=== PATIENT | male | born 1945 | race Caucasian/White ===

== ENCOUNTER → 2024-04-06 08:27 | Outpatient (REF) | payer MEDICARE, OTHER, SELFPAY ==
[2024-04-06 08:46] VITALS: BMI 28.3
[2024-04-06 10:41] LABS: Hematocrit 37.9 % (39.0-52.0); Mean Corp Hgb Conc. 34.3 g/dL (33.0-37.0); Mean Corpuscular Hgb 31.8 pg (27.0-31.0); Mean Corpuscular Volume 92.7 fL (80.0-94.0); Mean Platelet Volume 10.8 fL (7.4-10.4); Platelet Count 228 10^3/uL (130-400); Red Blood Cell Count 4.09 10^6/uL (4.70-6.10); Red Cell Dist. Width 12.7 % (11.5-14.5); White Blood Cell Count 3.9 10^3/uL (4.8-10.8)
[2024-04-06 14:20] LABS: Blood Urea Nitrogen 20 mg/dl (9-20); Calcium 9.3 mg/dl (8.4-10.2); Carbon Dioxide 26 mmol/L (22-30); Chloride 104 mmol/L (98-107); Estimated Creatinine Clearance 76 ml/min; Glucose 86 mg/dl (70-99); Potassium 4.9 mmol/L (3.5-5.1); Sodium 143 mmol/L (135-145); eGFR > 60.00
== END ==
LOC: SDSPAT 08:27
PROVIDERS: ATTENDING PHYSICIAN Surgery; FAMILY PHYSICIAN Family Medicine
DX: Z01.818 Encounter for other preprocedural examination (principal)
CPT/HCPCS: 36415; 80048; 85027

== ENCOUNTER 2024-05-04 06:36 | Day surgery (SDC) | payer MEDICARE, OTHER, SELFPAY ==
[2024-05-04] VITALS (11 sets, daily range): BP systolic 102–140; BP diastolic 56–79; BMI 27.7
[2024-05-04] MEDS: NORMOSOL-R/PLASMALYTE-A 1000 IV (08:41)
[2024-05-04] MEDS: TYLENOL 1000 MG PO (08:41)
[2024-05-04] MEDS: VANCOCIN 300 MG IV (08:48)
[2024-05-04] MEDS: VANCOCIN 300 ML IV (08:48)
--- NOTE | 2024-05-04 08:48 | HP.FOC2 ---
Focused History & Physical
Chief Complaint
HPI:
Chief Complaint: Right inguinal hernia
HPI / Indication for Planned Procedure: Patient is an 78-year-old male presenting for scheduled operative correction right inguinal hernia. He has been following his hernia expectantly for probably a couple years now. It has slightly increased in
size and now is more prominent. He has discomfort in the area particularly with more vigorous activities but the hernia remains reducible.
Medical history notable for LAN/CPAP, asthma, P A-fib on Tikosyn and anticoagulation with Eliquis, previous cardiac ablation and cardioversion, hypertension and BPH on both finasteride and tamsulosin.
Relevant Past Medical History: Other (A-fib, BPH, asthma, history of Elias's palsy, history of Lyme's, right inguinal hernia, LAN with CPAP)
Relevant Social History: Negative
Relevant Family History: Negative
Relevant Past Surgical History: Positive for (Arthroscopy knee, bilateral knee replacements, tonsils, cardiac ablation/cardioversion)
Review of Systems
Review of Pertinent Systems: All Systems Negative
Medication
See Medication form for detailed medications: Yes
Medication List (including Herbals & OTC):
calcium carbonate 500 mg-vitamin D3 10 mcg (400 unit) tablet (Calcium 500 + D) 1 tab PO QPM Supplement 12/12/11
fluticasone propionate 50 mcg/actuation nasal spray,suspension 2 spray intranasal DAILYPRN PRN allergies 12/12/11
tamsulosin 0.4 mg capsule 0.4 mg PO QPM Urinary issue 12/12/11
magnesium oxide 400 mg (241.3 mg magnesium) tablet (MagOx) 400 mg PO QPM Supplement 06/09/14
apixaban 5 mg tablet (Eliquis) 5 mg PO BID #60 tabs 04/13/21
finasteride 5 mg tablet 5 mg PO QPM Urinary issue 04/13/21
multivitamin with folic acid 400 mcg tablet (Tab-A-Antwan) 1 tab PO QPM Supplement 07/22/21
dofetilide 500 mcg capsule 500 mcg PO Q12 #60 caps 07/25/21
polyethylene glycol 3350 17 gram oral powder packet (Miralax) 17 g PO PRN PRN constipation 04/23/24
psyllium husk 0.52 gram capsule 1.04 g PO BID 04/23/24
Medications Reviewed: Yes
Allergies and Reactions
Patient has Allergies: Yes
Noted Allergies and Reactions:
Allergy/AdvReac Type Severity Reaction Status Date / Time
Cephalosporins Allergy Unknown Verified 05/04/24 08:33
grass pollen Allergy Sinus Verified 05/04/24 08:33
congestion
penicillin G Allergy Shortness Verified 05/04/24 08:33
of Breath
Penicillins Allergy Shortness Verified 05/04/24 08:33
of Breath
Pertinent Physical Exam
All Other Systems: Negative
Head/Neck: Normal
Lungs: Normal
Heart: Normal
Abdomen: Other (Right inguinal hernia)
Extremities: Normal
Neurological: Normal
Diagnosis / Assessment
Patient is an 78-year-old male presenting for scheduled operative correction symptomatic right inguinal hernia
Plan / Procedure
Robotic assisted laparoscopic repair right inguinal hernia with mesh
Anesthesia/Sedation to be done by Anesthesia Provider: Yes
--- NOTE | 2024-05-04 08:50 | W.SUR.PREOP ---
Pre-Operative Surgical Note
-
I have examined this patient prior to the performance of the scheduled procedure.
The patient's condition is unchanged from the time of the current History and
Physical and the patient is able to undergo the scheduled procedure.
--- NOTE | 2024-05-04 10:47 | W.IMMPOSTOP ---
Addendum entered and electronically signed by Дмитрий Steen MD 05/04/24 11:07:
#[id number]
Original Note:
Surgical Immed Post Op Note
-
Primary Surgeon: Enio
Assisting Surgeon: Azalea Bailey PA-c
Pre-op Diagnosis: Right inguinal hernia
Post-op Diagnosis: Right inguinal hernia�direct
Procedure Performed: RAL NELLIE repair RIH with mesh; 3D max large mid weight
Anesthesia Type: GETA +0.25% Marcaine
Specimen / Cultures: None
Estimated Blood Loss: 4 mL
Complications: None immediate
Operative Findings: Right direct inguinal hernia. Indirect location normal. Small lipoma of cord structures reduced and excised to facilitate mesh placement. 3D max large mid weight mesh repair. Plication of pseudosac with 2-0 Vicryl. Mesh
secured with 2-0 Vicryl to Earnest's.
The assistance of Azalea Bailey PA-C was required due to the complexity of the procedure. During the procedure Azalea Bailey PA-C assisted with port placement, robotic instrumentation and suture material exchanges, and closure of the surgical incision
sites. I was present for the entirety of the operative procedure.
--- NOTE | 2024-05-04 12:36 | SUR.PHASEI ---
comfortable in pacu - sleeps unless disturbed, patient with history of LAN, uses CPAP - encouraged to use CPAP with any rest periods today. Patient understands and agrees to same.
== END 2024-05-04 14:00 | disposition home or self-care (01) ==
LOC: SDS 06:36
PROVIDERS: ATTENDING PHYSICIAN Surgery; FAMILY PHYSICIAN Family Medicine
PROC: 0YU54JZ Supplement Right Inguinal Region with Synthetic Substitute, Percutaneous Endoscopic Approach (ICD-10-PCS; 2024-05-04)
PROC: 8E0W4CZ Robotic Assisted Procedure of Trunk Region, Percutaneous Endoscopic Approach (ICD-10-PCS; 2024-05-04)
DX: K40.90 Unilateral inguinal hernia, without obstruction or gangrene, not specified as recurrent (principal); I48.0 Paroxysmal atrial fibrillation; G47.33 Obstructive sleep apnea (adult) (pediatric); I10 Essential (primary) hypertension; J45.909 Unspecified asthma, uncomplicated; N40.0 Benign prostatic hyperplasia without lower urinary tract symptoms; Z79.01 Long term (current) use of anticoagulants
CPT/HCPCS: 49650; C1781

== ENCOUNTER → 2024-11-20 09:23 | Outpatient (REF) | payer MEDICARE, OTHER, SELFPAY | LOC: EMG 09:23 | PROVIDERS: ATTENDING PHYSICIAN Specialist; FAMILY PHYSICIAN Family Medicine | DX: G56.03 Carpal tunnel syndrome, bilateral upper limbs (principal); R20.0 Anesthesia of skin | CPT/HCPCS: 95886; 95911 ==